=== PATIENT | female | born 1975 | race Caucasian/White ===

== ENCOUNTER 2019-01-10 02:33 | Emergency (ER) | payer OTHER ==
[~2019-01-10] VITALS: Ht 165.1 cm; Wt 81.6 kg
[2019-01-10] MEDS ORDERED: IV NORMAL SALINE 1000ML BAG 1,000 ML IV SCH (02:37)
--- NOTE | 2019-01-10 02:57 | PHYS DOC ---
Adult General Chief Complaint Chief Complaint: ABDOMINAL PAIN HPI HPI 43-year-old female presents to the emergency department with complaints of abdominal pain, worsening tonight throughout 11 PM. Patient states she was sick on Sunday with vomiting, abdominal pain, nausea. She states over the week she's had intermittent complaints of pain however was better today she went to work and states she felt fine. Tonight she woke up after going to bed around 11 PM with sharp upper abdominal discomfort. Denies any nausea, vomiting, fever, diarrhea. Patient states nothing makes worse, nothing makes better on exam. Review of Systems Review of Systems Constitutional: Denies fever or chills [] Respiratory: Denies cough or shortness of breath [] Cardiovascular: No additional information not addressed in HPI [] GI: upper abdominal pain, no nausea, vomiting, bloody stools or diarrhea [] : Denies dysuria or hematuria [] Musculoskeletal: Denies back pain or joint pain [] Integument: Denies rash or skin lesions [] Neurologic: Denies headache, focal weakness or sensory changes [] All other systems were reviewed and found to be within normal limits, except as documented in this note. Current Medications Current Medications Current Medications Medications (Trade) Dose Ordered Sig/Emmanuel Start Time Stop Time Status Last Admin Dose Admin Info (CONTRAST GIVEN -- Rx MONITORING) 1 each PRN DAILY PRN 01/10/19 03:30 01/12/19 03:29 Iohexol (Omnipaque 300 Mg/ml) 75 ml 1X ONCE 01/10/19 04:00 01/10/19 04:01 DC 01/10/19 03:28 75 ML Morphine Sulfate (Morphine Sulfate) 4 mg STK-MED ONCE 01/10/19 03:04 01/10/19 03:04 DC Ondansetron HCl (Zofran) 4 mg STK-MED ONCE 01/10/19 03:04 01/10/19 03:04 DC Sodium Chloride 1,000 ml @ 1,000 mls/hr Q1H 01/10/19 02:37 01/10/19 03:36 DC 01/10/19 02:58 1,000 MLS/HR Allergies Allergies Allergies Coded Allergies Type Severity Reaction Last Updated Verified No Known Drug Allergies 01/10/19 No Physical Exam Physical Exam Constitutional: Well developed, well nourished, no acute distress, non-toxic appearance. [] HENT: Normocephalic, atraumatic, bilateral external ears normal, oropharynx moist, no oral exudates, nose normal. [] Eyes: PERRLA, EOMI, conjunctiva normal, no discharge. [] Cardiovascular:Heart rate regular rhythm, no murmur [] Lungs & Thorax: Bilateral breath sounds clear to auscultation [] Abdomen: Bowel sounds normal, soft, TTP upper abdomen/epigastric region, no masses, no pulsatile masses. [] Skin: Warm, dry, no erythema, no rash. [] Back: No tenderness, no CVA tenderness. [] Extremities: No tenderness, no edema. [] Neurologic: Alert and oriented X 3, no focal deficits noted. [] Psychologic: Affect normal, judgement normal, mood normal. [] Current Patient Data Vital Signs Vital Signs Date Time Temp Pulse Resp B/P (MAP) Pulse Ox O2 Delivery O2 Flow Rate FiO2 01/10/19 03:16 63 175/87 (116) 100 Room Air 01/10/19 02:40 97.7 16 97.7 Lab Values Laboratory Tests Test 01/10/19 02:40 01/10/19 02:50 01/10/19 02:52 Urine Collection Type Unknown Urine Color Yellow Urine Clarity Cloudy Urine pH 6.5 Urine Specific [place] 1.020 Urine Protein Negative mg/dL (NEG-TRACE) Urine Glucose (UA) Negative mg/dL (NEG) Urine Ketones (Stick) Negative mg/dL (NEG) Urine Blood Large (NEG) Urine Nitrite Negative (NEG) Urine Bilirubin Negative (NEG) Urine Urobilinogen Dipstick 0.2 mg/dL (0.2 mg/dL) Urine Leukocyte Esterase Moderate (NEG) Urine RBC Tntc /HPF (0-2) Urine WBC 11-20 /HPF (0-4) Urine Squamous Epithelial Cells Few /LPF Urine Amorphous Sediment Present /HPF Urine Bacteria Moderate /HPF (0-FEW) Urine Mucus Mod /LPF White Blood Count 7.9 x10^3/uL (4.0-11.0) Red Blood Count 4.38 x10^6/uL (3.50-5.40) Hemoglobin 13.7 g/dL (12.0-15.5) Hematocrit 39.4 % (36.0-47.0) Mean Corpuscular Volume 90 fL (79-100) Mean Corpuscular Hemoglobin 31 pg (25-35) Mean Corpuscular Hemoglobin Concent 35 g/dL (31-37) Red Cell Distribution Width 13.2 % (11.5-14.5) Platelet Count 475 x10^3/uL (140-400) H Neutrophils (%) (Auto) 58 % (31-73) Lymphocytes (%) (Auto) 32 % (24-48) Monocytes (%) (Auto) 7 % (0-9) Eosinophils (%) (Auto) 2 % (0-3) Basophils (%) (Auto) 1 % (0-3) Neutrophils # (Auto) 4.6 x10^3/uL (1.8-7.7) Lymphocytes # (Auto) 2.5 x10^3/uL (1.0-4.8) Monocytes # (Auto) 0.5 x10^3/uL (0.0-1.1) Eosinophils # (Auto) 0.2 x10^3/uL (0.0-0.7) Basophils # (Auto) 0.1 x10^3/uL (0.0-0.2) Sodium Level 141 mmol/L (136-145) Potassium Level 3.8 mmol/L (3.5-5.1) Chloride Level 103 mmol/L (98-107) Carbon Dioxide Level 24 mmol/L (21-32) Anion Gap 14 (6-14) Blood Urea Nitrogen 18 mg/dL (7-20) Creatinine 1.0 mg/dL (0.6-1.0) Estimated GFR (Cockcroft-Gault) 60.8 BUN/Creatinine Ratio 18 (6-20) Glucose Level 108 mg/dL (70-99) H Calcium Level 9.4 mg/dL (8.5-10.1) Total Bilirubin 0.2 mg/dL (0.2-1.0) Aspartate Amino Transferase (AST) 17 U/L (15-37) Alanine Aminotransferase (ALT) 21 U/L (14-59) Alkaline Phosphatase 53 U/L (46-116) Troponin I Quantitative < 0.017 ng/mL (0.000-0.055) Total Protein 7.8 g/dL (6.4-8.2) Albumin 3.4 g/dL (3.4-5.0) Albumin/Globulin Ratio 0.8 (1.0-1.7) L Lipase 156 U/L (73-393) POC Urine HCG, Qualitative Hcg negative (Negative) Laboratory Tests 01/10/19 02:50 Laboratory Tests 01/10/19 02:50 EKG EKG [] Radiology/Procedures Radiology/Procedures [facility] [address] [place] [address] IMAGING REPORT Signed PATIENT: ADELIA NEWTON ACCOUNT: [id number] : 1975 LOCATION: ER AGE: 43 SEX: F EXAM STATUS: REG ER ORD. PHYSICIAN: SHEY NGO MD REASON: abdominal pain, epigastric PROCEDURE: CT ABD PELV W/ IV CONTRST ONLY CT abdomen pelvis with contrast. HISTORY: Abdominal pain, epigastric pain CT scan the abdomen and pelvis was done using 75 mL Omnipaque 300 contrast. Lung bases are clear. There is no effusion. Liver is normal in appearance. Spleen and adrenal glands are normal. Pancreas is normal. There is no mass or hydronephrosis in the kidneys. There is at least one calcified gallstone the gallbladder without gallbladder wall thickening. Common duct is nondilated. There is no bowel obstruction or ascites. Appendix is normal. There is moderate stool in the colon. There is no small bowel obstruction. There is no adenopathy or ascites. Uterus and left ovary are normal. There is a septated right ovarian cyst measuring 4.8 x 3.8 cm. IMPRESSION: 1. Septated right ovarian cyst. 2. Cholelithiasis. 3. Normal appendix. PQRS Compliance Statement: One or more of the following individualized dose reduction techniques were utilized for this examination: 1. Automated exposure control 2. Adjustment of the mA and/or kV according to patient size 3. Use of iterative reconstruction technique Electronically signed by: Rafa Bautista MD (01/10/2019 3:44 AM) [facility] DICTATED and SIGNED BY: RAFA BAUTISTA MD DATE: 01/10/19 0344 [] [facility] [address] [place] [address] IMAGING REPORT Signed PATIENT: ADELIA NEWTON ACCOUNT: [id number] : 1975 LOCATION: ER AGE: 43 SEX: F EXAM STATUS: REG ER ORD. PHYSICIAN: SHEY NGO MD REASON: evidence of cholelithiasis on CT - eval for cholecystitis PROCEDURE: ABDOMEN LTD Ultrasound the abdomen limited. HISTORY: Evidence of cholelithiasis on CT Ultrasound was used to evaluate the gallbladder right upper quadrant. Pancreas was normal in appearance. Common duct was normal measuring 4 mm. A focal liver lesion was not identified. Right kidney was 10.8 cm in length without a mass or hydronephrosis. There is slight pericholecystic edema with a a possible impacted calculus at the neck of the gallbladder. IMPRESSION: 1. Cholelithiasis. 2. Possible gallstone impacted in calculus in the neck of the gallbladder. 3. Mild gallbladder wall thickening with slight pericholecystic fluid. Electronically signed by: Rafa Bautista MD (01/10/2019 4:47 AM) [facility] DICTATED and SIGNED BY: RAFA BAUTISTA MD DATE: 01/10/19 0447 Course & Med Decision Making Course & Med Decision Making Pertinent Labs and Imaging studies reviewed. (See chart for details) []43-year-old female presents to the emergency department with complaints of abdominal pain, worsening tonight throughout 11 PM. Patient states she was sick on Sunday with vomiting, abdominal pain, nausea. She states over the week she's had intermittent complaints of pain however was better today she went to work and states she felt fine. Tonight she woke up after going to bed around 11 PM with sharp upper abdominal discomfort. Denies any nausea, vomiting, fever, diarrhea. Patient states nothing makes worse, nothing makes better on exam. Labs/Imaging reviewed Patient improved after morphine, zofran and IVF Imaging reviewed with evidence of cholelithiasis, no cholecystitis appreciated Discussed with patient return precautions Discussed with patient follow up with PCP Valerie Disclaimer Dragon Disclaimer This electronic medical record was generated, in whole or in part, using a voice recognition dictation system. Departure Departure Impression: Primary Impression: Biliary colic Disposition: 01 HOME, SELF-CARE Condition: IMPROVED Referrals: NO PCP (PCP) Patient Instructions: Biliary Colic Additional Instructions: Recommend follow up with PCP 3 - 5 days Return to the ER with worsening symptoms, intractable pain, fever, altered mental status Tylenol/Motrin as needed for pain Take pain medications as needed Take nausea medications as needed Scripts Ondansetron Hcl (ZOFRAN) 4 Mg Tablet 1 TAB PO PRN Q6-8HRS for nausea for 5 Days, #12 TAB Prov: SHEY NGO MD 01/10/19 Tramadol Hcl (TRAMADOL HCL) 50 Mg Tablet 50 MG PO Q4HRS PRN for PAIN for 5 Days, #30 TAB Prov: SHEY NGO MD 01/10/19 SHEY NGO MD Jan 10, 2019 02:57
[2019-01-10 03:00] LABS: BASO # 0.1 x10^3/uL (0.0-0.2); BASO % 1 % (0-3); EOS # 0.2 x10^3/uL (0.0-0.7); EOS % 2 % (0-3); HEMATOCRIT 39.4 % (36.0-47.0); HEMOGLOBIN 13.7 g/dL (12.0-15.5); LYMPH # 2.5 x10^3/uL (1.0-4.8); LYMPH % 32 % (24-48); MEAN CORPUSCULAR HEMOGLOBIN 31 pg (25-35); MEAN CORPUSCULAR HGB CONC 35 g/dL (31-37); MEAN CORPUSCULAR VOLUME 90 fL (79-100); MONO # 0.5 x10^3/uL (0.0-1.1); MONO % 7 % (0-9); NEUT # 4.6 x10^3/uL (1.8-7.7); NEUT % 58 % (31-73); PLATELET COUNT 475 x10^3/uL (140-400); RED BLOOD COUNT 4.38 x10^6/uL (3.50-5.40); RED CELL DISTRIBUTION WIDTH 13.2 % (11.5-14.5); WHITE BLOOD COUNT 7.9 x10^3/uL (4.0-11.0)
[2019-01-10 03:01] LABS: BILIRUBIN,URINE NEGATIVE (NEG); CLARITY,URINE CLOUDY; COLOR,URINE YELLOW; NITRITE,URINE NEGATIVE (NEG); PH,URINE 6.5; PROTEIN,URINE NEGATIVE (NEG-TRACE); UROBILINOGEN,URINE 0.2 mg/dL (0.2 mg/dL)
[2019-01-10] MEDS ORDERED: ONDANSETRON PF 4 MG/2 ML VIAL. ONE (03:04)
[2019-01-10] MEDS ORDERED: MORPHINE SULFATE 4 MG/ML VIAL. ONE (03:04)
[2019-01-10 03:07] LABS: CALCIUM 9.4 mg/dL (8.5-10.1); GFR 60.8; POTASSIUM 3.8 mmol/L (3.5-5.1)
[2019-01-10 03:09] LABS: SQUAMOUS EPITHELIAL CELL,UR FEW /LPF
[2019-01-10 03:10] LABS: AMORPHOUS SEDIMENT,UR PRESENT /HPF; BACTERIA,URINE MODERATE /HPF (0-FEW); RBC,URINE TNTC /HPF (0-2)
[2019-01-10 03:13] LABS: ALBUMIN 3.4 g/dL (3.4-5.0); ALBUMIN/GLOBULIN RATIO 0.8 (1.0-1.7); TOTAL BILIRUBIN 0.2 mg/dL (0.2-1.0); TOTAL PROTEIN 7.8 g/dL (6.4-8.2)
[2019-01-10 03:16] VITALS: BP 175/87
[2019-01-10] MEDS ORDERED: ONDANSETRON PF 4 MG/2 ML VIAL. IV ONE (03:30)
[2019-01-10] MEDS ORDERED: CONTRAST GIVEN. MC PRN (03:30)
[2019-01-10] MEDS ORDERED: MORPHINE SULFATE 4 MG/ML VIAL. IV ONE (03:30)
--- NOTE | 2019-01-10 03:47 | RAD ---
CT abdomen pelvis with contrast. HISTORY: Abdominal pain, epigastric pain CT scan the abdomen and pelvis was done using 75 mL Omnipaque 300 contrast. Lung bases are clear. There is no effusion. Liver is normal in appearance. Spleen and adrenal glands are normal. Pancreas is normal. There is no mass or hydronephrosis in the kidneys. There is at least one calcified gallstone the gallbladder without gallbladder wall thickening. Common duct is nondilated. There is no bowel obstruction or ascites. Appendix is normal. There is moderate stool in the colon. There is no small bowel obstruction. There is no adenopathy or ascites. Uterus and left ovary are normal. There is a septated right ovarian cyst measuring 4.8 x 3.8 cm. IMPRESSION: 1. Septated right ovarian cyst. 2. Cholelithiasis. 3. Normal appendix. PQRS Compliance Statement: One or more of the following individualized dose reduction techniques were utilized for this examination: 1. Automated exposure control 2. Adjustment of the mA and/or kV according to patient size 3. Use of iterative reconstruction technique Electronically signed by: Rafa Pacheco MD (01/10/2019 3:44 AM) [facility]
[2019-01-10] MEDS ORDERED: IOHEXOL 300 MG/ML 100ML VIAL. IV ONE (04:00)
--- NOTE | 2019-01-10 04:50 | RAD ---
Ultrasound the abdomen limited. HISTORY: Evidence of cholelithiasis on CT Ultrasound was used to evaluate the gallbladder right upper quadrant. Pancreas was normal in appearance. Common duct was normal measuring 4 mm. A focal liver lesion was not identified. Right kidney was 10.8 cm in length without a mass or hydronephrosis. There is slight pericholecystic edema with a a possible impacted calculus at the neck of the gallbladder. IMPRESSION: 1. Cholelithiasis. 2. Possible gallstone impacted in calculus in the neck of the gallbladder. 3. Mild gallbladder wall thickening with slight pericholecystic fluid. Electronically signed by: Rafa Pacheco MD (01/10/2019 4:47 AM) [facility]
[2019-01-10] MEDS ORDERED: ONDA4TAB7 PO (05:03)
[2019-01-10] MEDS ORDERED: TRAM50TA PO (05:03)
--- NOTE | 2019-01-21 09:21 | NUR ---
Late entry made to Medical Record. IV Stop time transcribed from eMAR to IV spreadsheet
== END 2019-01-10 05:15 | disposition home or self-care (01) ==
LOC: ER 02:33
DX: K80.70 Calculus of gallbladder and bile duct without cholecystitis without obstruction (principal); R11.2 Nausea with vomiting, unspecified
CPT/HCPCS: 36415; 74177; 76705; 80053; 81001; 81025; 83690; 84484; 85025; 87086; 96361; 96374; 96375; 99285; J2270; J2405; J7030; Q9967